=== PATIENT | female | born 1975 | race Caucasian/White ===

== ENCOUNTER 2019-01-09 19:51 | Emergency (ER) | payer MEDICAID ==
[~2019-01-09] VITALS: Wt 72.3 kg
[2019-01-09 20:00] VITALS: BP 185/90; PULSE 78; RESP 18
--- NOTE | 2019-01-09 20:35 | ERD ---
ER Documentation Chief Complaint Chief Complaint left 5th finger laceration with pipe cutter x 1 hour HPI This is a 43-year-old female who presents here in the emergency department with complaints of left fifth finger laceration that happened at around 7:20 pm today, at her house, while she was cutting foil, accidentally cut her left fifth finger. Patient is right-handed. Does not take any blood thinners. Not sure when was her last tetanus shot. LMP: Last month. G2, . Denies. Denies headache, head injury, loss of consciousness, dizziness, neck pain, neck stiffness, throat pain, difficulty swallowing, difficulty breathing lying flat, shoulder pain, chest pain, back pain, abdominal pain, nausea, vomiting, constipation, diarrhea, urinary symptoms, or possibility being , loss of bowel and bladder control, difficulty walking due to pain, numbness or tingling sensation, calf pain, recent travel, recent major surgery in the last 3 weeks, calf pain, recent long travel, recent exposure to any illness, recent antibiotic use in the last 3 months, fever, chills, seizures. Past medical history: Surgical history: Social: Denies smoking, use of alcoholic beverages, use of illegal drugs. ROS All systems reviewed and are negative except as per history of present illness. Medications Home Meds Active Scripts Ibuprofen* (Motrin*) 800 Mg Tab, 800 MG PO Q8 PRN for PAIN AND OR ELEVATED TEMP, #20 TAB Prov:JUDIE RENNERAR F 01/09/19 Cephalexin* (Keflex*) 500 Mg Capsule, 500 MG PO BID for 5 Days, CAP Prov:PASILABAN,KLAR F 01/09/19 Allergies Allergies: Coded Allergies: No Known Drug Allergies (Verified Allergy, Unknown, 01/09/19) PMhx/Soc Medical and Surgical Hx: pt denies Medical Hx, pt denies Surgical Hx Hx Alcohol Use: No Hx Substance Use: No Hx Tobacco Use: No Smoking Status: Never smoker Physical Exam Vitals Physical Exam Const: No acute distress Head: Atraumatic Eyes: Normal Conjunctiva ENT: Normal External Ears, Nose and Mouth. Neck: Full range of motion. No meningismus. Resp: Clear to auscultation bilaterally Cardio: Regular rate and rhythm, no murmurs Abd: Soft, non tender, non distended. Normal bowel sounds Skin: No petechiae or rashes Back: No midline or flank tenderness Ext: No cyanosis, or edema. Left hand: Left fifth finger has a laceration (n ot involving the PIP and DIP) to its dorsal area measuring approximately 2 cm in length involving the middle phalange. Left index/middle/ring fingers are unremarkable. Capillary refills of left hand are less than 2 seconds. Left thumb is unremarkable. No snuffbox tenderness. Left radial pulse is within normal limits. Has good and full function of her left hand. Neur: Awake and alert. No neurological deficit. Psych: Normal Mood and Affect Results 24 hrs Current Medications Medications Dose Sig/Sal Start Time Status Last (Trade) Ordered Route PRN Stop Time Admin Dose Reason Admin Lidocaine 20 ml ONCE ONCE 01/09/19 DC (Xylocaine SC 21:00 1% (Mdv) 20 01/09/19 21:01 ml) Diphtheria/ 0.5 ml ONCE ONCE 01/09/19 DC 01/09/19 Tetanus/Acell IM* 21:00 20:50 Pertussis 01/09/19 21:01 (Adacel) 1 tab ONCE ONCE 01/09/19 DC 01/09/19 Acetaminophen PO 21:00 20:50 / 01/09/19 21:01 Hydrocodone Bitart ([place] (5/325)) Bacitracin 1 applic ONCE ONCE 01/09/19 DC 01/09/19 (Bacitracin TOP 22:30 22:34 Oint (Ud)) 01/09/19 22:31 Procedures/MDM Diagnostic tests: X-ray of the left hand: No evidence of fracture. Treatment: Adacel IM. [place] p.o. Procedure: Laceration repair. Betadine prep. Lidocaine 1% 2 cc digital block and subcu. Copious/pressure irrigation with saline and Betadine. Wound was explored. No foreign body seen. Bone not visualized. Ethilon 4-0 x8 simple interrupted sutures. Volar area of the left index finger has a laceration measuring approximately 1.5 cm. Ethilon 4-0 x4 simple interrupted sutures. 3.5 cm after closure. Bacitracin and dressing was applied by EMT. Re-evaluation: Left fifth finger: PIP and DIP has good and full range of motion. No suspicion of tendon injury. Capillary refills are within normal limits. No neurovascular deficits. Differential diagnosis I have low suspicion for open fracture, retained foreign body, tendon injury, compartment syndrome, deep space infection. Final diagnosis: Finger laceration. Prescription: Motrin. Follow-up with PCP in the next 24-48 hours. Come back in 2 days for wound check. Come back in 7 to 10 days for suture removal. Come back here in the emergency department for any new symptoms or any worsening symptoms. All questions and concerns were answered. Patient and family members verbalized understanding and agreed with plan of care. Hemodynamically stable on discharge. Departure Diagnosis: Primary Impression: Laceration Additional Impressions: Finger laceration Hand laceration Condition: Stable Additional Instructions: Follow-up with PCP in the next 24-48 hours. Come back in 2 days for wound check. Come back in 7 to 10 days for suture removal. Come back here in the emergency department for any new symptoms or any worsening symptoms. CRISTINA RENNER January 09, 2019 20:35
[2019-01-09] MEDS ORDERED: LIDOCAINE 1% (MDV) 20 ML INJ SC ONE (21:00)
[2019-01-09] MEDS ORDERED: DIPHTH/TET/ACEL PERTUSS (ADULT) 0.5 ML VIAL IM* ONE (21:00)
[2019-01-09] MEDS ORDERED: HYDROCODONE/APAP (5/325) TAB PO ONE (21:00)
[2019-01-09] MEDS ORDERED: IBUP800T48 PO (22:18)
[2019-01-09] MEDS ORDERED: CEPH-443 PO (22:18)
[2019-01-09] MEDS ORDERED: BACITRACIN 0.9 GM OINT TOP ONE (22:30)
== END 2019-01-09 22:31 | disposition home or self-care (01) ==
LOC: FTE 19:51
DX: S61.217A Laceration without foreign body of left little finger without damage to nail, initial encounter (principal); S61.211A Laceration without foreign body of left index finger without damage to nail, initial encounter; W27.8XXA Contact with other nonpowered hand tool, initial encounter; Y92.009 Unspecified place in unspecified non-institutional (private) residence as the place of occurrence of the external cause; Z23 Encounter for immunization
CPT/HCPCS: 12002; 73130; 90471; 90715; Z7502; Z7610

== ENCOUNTER 2019-01-12 09:20 | Emergency (ER) | payer MEDICAID ==
[~2019-01-12] VITALS: Wt 69.0 kg
[~2019-01-12 09:20] MED LIST: CEPH-443 PO; IBUP800T48 PO
[2019-01-12 09:23] VITALS: BP 150/81; PULSE 80; RESP 18
--- NOTE | 2019-01-12 10:08 | ERD ---
ER Documentation Chief Complaint Chief Complaint HERE FOR 2 DAY WOUND CHECK ON L PINKY FINGER LAC HPI Patient is a 43-year-old female who presents for a wound check. The patient had a left finger laceration 2 days ago that was repaired with stitches. She was told to come back for a 2-day wound check. She denies pus or fever. She has no complaints. ROS All systems reviewed and are negative except as per history of present illness. Medications Home Meds Active Scripts Ibuprofen* (Motrin*) 800 Mg Tab, 800 MG PO Q8 PRN for PAIN AND OR ELEVATED TEMP, #20 TAB Prov:PASILABANJUDIEAR F 01/09/19 Cephalexin* (Keflex*) 500 Mg Capsule, 500 MG PO BID for 5 Days, CAP Prov:PASILABAN,KLAR F 01/09/19 Allergies Allergies: Coded Allergies: No Known Drug Allergies (Verified Allergy, Unknown, 01/09/19) PMhx/Soc Medical and Surgical Hx: pt denies Medical Hx Hx Alcohol Use: No Hx Substance Use: No Hx Tobacco Use: No FmHx Family History: No diabetes Physical Exam Vitals Vital Signs Date Temp Pulse Resp B/P (MAP) Pulse Ox O2 O2 Flow FiO2 Time Delivery Rate 01/12/19 97.4 80 18 150/81 99 09:23 (104) Physical Exam Const: No acute distress Skin: Incision is clean, dry, and intact to the left fifth finger Neur: Awake and alert Psych: Normal Mood and Affect Procedures/MDM Wound shows no evidence of infection, foreign body, neurologic injury, vascular injury, open joint or tendon laceration. Patient appropriate for outpatient follow up. Departure Diagnosis: Primary Impression: Encounter for wound re-check Condition: Fair Patient Instructions: Wound Check, Lac F/U (No Infection) [facility]errals[facility] Usted se mcbride hecho un examen mdico de control que le indica que no est en haley condicin que requiera tratamiento urgente en el Departamento de Emergencia. Un estudio ms profundo y el tratamiento de cuevas condicin pueden esperar sin ningn riesgo hasta que usted sea atendida/o en el consultorio de cuevas mdico o haley clnica. Es responsabilidad suya arreglar haley lara para el seguimiento del estephania. MANEJO DE CONDICIONES NO URGENTES EN EL FUTURO 1) Si usted tiene un mdico de atencin primaria: Usted debera llamar a cuevas mdico de atencin primaria antes de venir al departamento de emergencia. Despus de las horas de consultorio, cuevas doctor o cuevas asociado/a est disponible por telfono. El mdico o enfermero de frances en el servicio telefnico puede asesorarle por rolan medio para atender el problema, o estephania contrario se puede programar haley lara. 2) Si usted no tiene un mdico de atencin primaria: Llame al mdico o clnica de referencia que aparece abajo doug las horas de consultorio para hacer haley lara para que le vean. CLINICAS: [facility] [phone] [address] [facility] [phone] [address] [facility] [phone] [facility] [phone] [address] [facility] [phone] [address] [facility]. [phone] [address] Additional Instructions: Suture removal 5-7 days. MARY DUMONT MD Jan 12, 2019 10:08
== END 2019-01-12 10:18 | disposition home or self-care (01) ==
LOC: FTE 09:20
DX: Z48.01 Encounter for change or removal of surgical wound dressing (principal)
CPT/HCPCS: 99281

== ENCOUNTER 2019-01-17 11:04 | Emergency (ER) | payer MEDICAID ==
[~2019-01-17] VITALS: Ht 160 cm; Wt 72.3 kg
[2019-01-17 11:08] VITALS: Ht 160 cm; Wt 72.3 kg
[2019-01-17 12:11] VITALS: BP 141/85; PULSE 80; RESP 16
--- NOTE | 2019-01-31 18:30 | ERD ---
ER Documentation Chief Complaint Chief Complaint suture removal on lt hand HPI Patient is a 43-year-old female, presents the ER for concerns of suture removal. Patient sustained a laceration on 01-09-19 while cutting foil to her left fifth finger. Patient denies any fevers or chills. Patient denies any redness, swelling, pain, numbness or tingling to the affected extremity. Tetanus is up-to-date. ROS All systems reviewed and are negative except as per history of present illness. Medications Home Meds Active Scripts Ibuprofen* (Motrin*) 800 Mg Tab, 800 MG PO Q8 PRN for PAIN AND OR ELEVATED TEMP, #20 TAB Prov:PASILABAN,KLAR F 01/09/19 Cephalexin* (Keflex*) 500 Mg Capsule, 500 MG PO BID for 5 Days, CAP Prov:PASILABAN,KLAR F 01/09/19 Allergies Allergies: Coded Allergies: No Known Drug Allergies (Verified Allergy, Unknown, 01/09/19) PMhx/Soc Medical and Surgical Hx: pt denies Medical Hx, pt denies Surgical Hx Hx Alcohol Use: No Hx Substance Use: No Hx Tobacco Use: No Smoking Status: Never smoker FmHx Family History: No diabetes, No coronary disease, No other Physical Exam Physical Exam GENERAL: Well-developed, well-nourished female. Appears in no acute distress. HEAD: Normocephalic, atraumatic. EYES: Pupils are equally reactive bilaterally. EOMs grossly intact. No conju nctival erythema. EXTREMITIES: Equal pulses bilaterally. No peripheral clubbing, cyanosis or edema. No unilateral leg swelling. NEUROLOGIC: Alert and oriented. Moving all four extremities without any difficulty. Normal speech. Steady gait. SKIN: Healing laceration noted to the left fifth digit. No surrounding erythema, warmth, drainage or bleeding. No wound dehiscence. [address] Patient able to bend at PIP, DIP joint without difficulty. Procedures/MDM Suture Removal by me: 12 Sutures removed with tweezers and scissors without incident. Wound shows no evidence of infection, foreign body, neurologic injury, vascular injury, open joint or tendon laceration. Patient to follow up PRN. Departure Diagnosis: Primary Impression: Encounter for removal of sutures Condition: Fair Patient Instructions: Suture Removal, No Complication Referrals: [facility] YOU HAVE RECEIVED A MEDICAL SCREENING EXAM AND THE RESULTS INDICATE THAT YOU DO NOT HAVE A CONDITION THAT REQUIRES URGENT TREATMENT IN THE EMERGENCY DEPARTMENT. FURTHER EVALUATION AND TREATMENT OF YOUR CONDITION CAN WAIT UNTIL YOU ARE SEEN IN YOUR DOCTORS OFFICE WITHIN THE NEXT 1-2 DAYS. IT IS YOUR RESPONSIBILITY TO MAKE AN APPOINTMENT FOR FOLOW-UP CARE. IF YOU HAVE A PRIMARY DOCTOR --you should call your primary doctor and schedule an appointment IF YOU DO NOT HAVE A PRIMARY DOCTOR YOU CAN CALL OUR PHYSICIAN REFERRAL HOTLINE AT IF YOU CAN NOT AFFORD TO SEE A PHYSICIAN YOU CAN CHOSE FROM THE FOLLOWING [facility] [address] [facility] [address] [facility] [facility] [address] [facility] [address] [address] [facility] [address] [facility]. [facility] [address] [facility] [facility] YOU HAVE RECEIVED A MEDICAL SCREENING EXAM AND THE RESULTS INDICATE THAT YOU DO NOT HAVE A CONDITION THAT REQUIRES URGENT TREATMENT IN THE EMERGENCY DEPARTMENT. FURTHER EVALUATION AND TREATMENT OF YOUR CONDITION CAN WAIT UNTIL YOU ARE SEEN IN YOUR DOCTORS OFFICE WITHIN THE NEXT 1-2 DAYS. IT IS YOUR RESPONSIBILITY TO MAKE AN APPOINTMENT FOR FOLOW-UP CARE. IF YOU HAVE A PRIMARY DOCTOR --you should call your primary doctor and schedule and appointment IF YOU DO NOT HAVE A PRIMARY DOCTOR YOU CAN CALL OUR PHYSICIAN REFERRAL HOTLINE AT . IF YOU CAN NOT AFFORD TO SEE A PHYSICIAN YOU CAN CHOSE FROM THE FOLLOWING [facility]: [facility] [address] [place] [address] [facility] [address] [place] [address] [facility] [address] [place] [address] Additional Instructions: Call your primary care doctor TOMORROW for an appointment during the next 1-2 days.See the doctor sooner or return here if your condition worsens before your appointment time. DOMENICO ABBOTT PA-C Jan 31, 2019 18:30
== END 2019-01-17 12:13 | disposition home or self-care (01) ==
LOC: FTE 11:04
DX: Z48.02 Encounter for removal of sutures (principal)
CPT/HCPCS: 99281